=== PATIENT | male | born 1970 | race Asian ===

== ENCOUNTER 2019-05-18 13:41 | Emergency (ER) | payer MEDICAID ==
[~2019-05-18] VITALS: Ht 167.6 cm; Wt 137.4 kg
[2019-05-18 13:43] VITALS: BP 112/74
[2019-05-18] MEDS ORDERED: Tetanus/Diptheria/Pertussis IM ONE ×2 (13:45→13:49)
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
[2019-05-18] MEDS ORDERED: AMLODIPINE BESYL5 MG ORAL (13:56)
[2019-05-18] MEDS ORDERED: BUMETANIDE2 MG ORAL (13:56)
[2019-05-18] MEDS ORDERED: HYDROCHLOROTHIA25 MG ORAL (13:56)
--- NOTE | 2019-05-18 13:59 | NUR ---
ED Nurse Note: [employer] at bedside.
--- NOTE | 2019-05-18 14:08 | NUR ---
ED Nurse Note: [employer] #[id number] reported by patient.
--- NOTE | 2019-05-18 14:10 | NUR ---
ED Nurse Note: pt went down for imaging in stable condition.
--- NOTE | 2019-05-18 14:38 | NUR ---
ED Nurse Note: pt came back from imaging in stable condition.
--- NOTE | 2019-05-18 14:47 | Diagnostic Imaging Report ---
Indications: Pain Technique: Spiral acquisitions obtained through the brain. Angled axial and coronal 5 x 5 mm slices were reconstructed. Total dose length product 2000.49 mGycm. CTDI vol(s) 70.38,28.19 mGy. Dose reduction achieved using automated exposure control Comparison: None. Findings: No acute intracranial hemorrhage or edema. No mass effect nor midline shift. Normal rodriguez-white differentiation. Intact calvarium. The mastoids are underpneumatized. The visualized orbits and sinuses are unremarkable Impression: Distention unremarkable exam. Negative for acute intracranial bleed or mass effect This agrees with the preliminary interpretation provided overnight by [facility] service. The CT scanner at [facility] is accredited by the [employer] and the scans are performed using protocols designed to limit radiation exposure to as low as reasonably achievable to attain images of sufficient resolution adequate for diagnostic evaluation.
--- NOTE | 2019-05-18 14:48 | Diagnostic Imaging Report ---
Indications: Facial pain Technique: Spiral images obtained through the facial bones. No IV contrast utilized. Multiplanar reconstructions were generated.Total dose length product 2000.49 mGycm. CTDIvol(s) 70.38,28.19 mGy. Dose reduction achieved using automated exposure control Comparison: none Findings: No acute fractures. No worrisome sinus opacification demonstrated. The dentition is intact. The optic globes are intact. The upper aerodigestive tract is unremarkable. The salivary glands are unremarkable. Impression: Negative This agrees with the preliminary interpretation provided overnight by [facility]. The CT scanner at [facility] is accredited by the [employer] and the scans are performed using protocols designed to limit radiation exposure to as low as reasonably achievable to attain images of sufficient resolution adequate for diagnostic evaluation.
--- NOTE | 2019-05-18 14:52 | NUR ---
ED Nurse Note: ERMD reveiwing test results with pt at bedside.
[2019-05-18] MEDS ORDERED: HYDROcodone/Acetamin 7.5/325 tab ORAL ONE (15:00)
[2019-05-18] MEDS ORDERED: IBUPROFEN600 MG ORAL (15:02)
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
[2019-05-18 15:20] VITALS: BP 120/86
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
--- NOTE | 2019-05-19 12:16 | Diagnostic Imaging Report ---
Indication: Pain Technique: 2 views of the right tibia and fibula Comparison: none Findings: No acute fractures. No dislocations. The joint spaces are preserved Impression: Negative
--- NOTE | 2019-05-19 12:34 | Diagnostic Imaging Report ---
Indication: Right knee pain Technique: 3 views of the right knee Comparison: None Findings: No suprapatellar effusion. No acute fractures. No dislocations. The joint spaces are preserved. Impression: Negative
== END 2019-05-18 15:20 | disposition home or self-care (01) ==
LOC: EDBD 13:41 → EMR 14:28
DX: S80.01XA Contusion of right knee, initial encounter (principal); R51 Headache; I10 Essential (primary) hypertension; Z23 Encounter for immunization; Y04.8XXA Assault by other bodily force, initial encounter
CPT/HCPCS: 70450; 70486; 73552; 73560; 73590; 90471; 90715; Z7502; 99284

== ENCOUNTER 2019-05-25 15:36 | Emergency (ER) | payer MEDICAID ==
[~2019-05-25] VITALS: Ht 167.6 cm; Wt 136.1 kg
[~2019-05-25 15:36] MED LIST: AMLODIPINE BESYL5 MG ORAL; BUMETANIDE2 MG ORAL; HYDROCHLOROTHIA25 MG ORAL; IBUPROFEN600 MG ORAL
[2019-05-25 15:40] VITALS: BP 140/74
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
[2019-05-25] MEDS ORDERED: Ketorolac 60mg Inj IM ONE (16:00)
[2019-05-25] MEDS ORDERED: LIDODERM700 M1 TOPIC (16:00)
[2019-05-25] MEDS ORDERED: NAPROXEN250 MG ORAL (16:00)
[2019-05-25] MEDS ORDERED: oxyCODONE HCL/Acetaminophen 5/325mg ORAL ONE (16:00)
[2019-05-25] MEDS ORDERED: ROBAXIN-750750 MG PO (16:00)
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
--- NOTE | 2019-05-25 16:29 | NUR ---
ER DISCHARGE NOTE: Officer Eric ( [id number] ) arrived and and is currently speaking to pt in room
[2019-05-25 16:45] VITALS: BP 144/76
--- NOTE | 2019-05-25 16:45 | NUR ---
ER DISCHARGE NOTE: Patient is cleared to be discharged per ERMD, pt is aox4, on room air, with stable vital signs. pt was given dc and prescription instructions, pt was able to verbalize understanding, pt id band removed without complications. pt is able to ambulate with the use of crutches. pt took all belongings.
== END 2019-05-25 16:45 | disposition home or self-care (01) ==
LOC: EDBD 15:36 → EMR 16:08
DX: M54.5 Low back pain (principal); S30.0XXA Contusion of lower back and pelvis, initial encounter; V43.52XA Car driver injured in collision with other type car in traffic accident, initial encounter; Y92.410 Unspecified street and highway as the place of occurrence of the external cause
CPT/HCPCS: 96372; Z7502; 99283